=== PATIENT | male | born 1970 | race Caucasian/White ===

== ENCOUNTER 2019-11-07 16:07 | Emergency (ER) | payer MEDICAID, OTHER ==
[~2019-11-07] VITALS: Ht 190.5 cm; Wt 90.9 kg
[~2019-11-07 16:07] MED LIST: CITA20TA2 PO; CLIN150C2 PO
--- NOTE | 2019-11-07 17:00 | NUR ---
CHECKED ON PT. AND PT. WAS GONE, CHARGE NURSE AND PROVIDER AWARE AND WHEN WE RETURNED AT 1720 PT. HAD RETURNED TO THE TENT. EDUCATED PT. THAT HE CANNOT LEAVE THE TENT UNTIL WE GET RESULTS. PT. VERBALIZERD UNDERSTANDING.
[2019-11-07 17:25] VITALS: BP 144/85
[2019-11-07] MEDS ORDERED: TAM75C PO (17:30)
--- NOTE | 2019-11-07 18:15 | NUR ---
Swab will be sent to [facility] for results per micro in the lab.
== END 2019-11-07 17:43 | disposition home or self-care (01) ==
LOC: ER 16:09
DX: J06.9 Acute upper respiratory infection, unspecified (principal); Z20.828 Contact with and (suspected) exposure to other viral communicable diseases; B34.9 Viral infection, unspecified; K21.9 Gastro-esophageal reflux disease without esophagitis; F12.90 Cannabis use, unspecified, uncomplicated; F15.90 Other stimulant use, unspecified, uncomplicated; F11.90 Opioid use, unspecified, uncomplicated; Z87.891 Personal history of nicotine dependence; Z59.0 Homelessness; Z56.0 Unemployment, unspecified; Z79.2 Long term (current) use of antibiotics; Z79.899 Other long term (current) drug therapy
CPT/HCPCS: 36415; 87502; 87503; 87635; 99283

== ENCOUNTER 2023-05-29 00:57 | Emergency (ER) | payer MEDICAID ==
[~2023-05-29] VITALS: Ht 190.5 cm; Wt 70.8 kg
[2023-05-29] MEDS ORDERED: proparacaine 0.5% ophthalmic drops 15ml RIGHTEYE STA (03:44)
[2023-05-29] MEDS ORDERED: ciprofloxacin 0.3% 2.5ml ophthalmic solution RIGHTEYE ONE (05:05)
[2023-05-29] MEDS ORDERED: CIPR2.5D21 RIGHTEYE (05:17)
[2023-05-29 06:19] VITALS: BP 124/78; PULSE 63; RESP 14; TEMP 97.8; O2SAT 98
== END 2023-05-29 05:34 | disposition home or self-care (01) ==
LOC: ER 00:58
DX: T15.01XA Foreign body in cornea, right eye, initial encounter (principal); X58.XXXA Exposure to other specified factors, initial encounter; Y93.89 Activity, other specified; Y92.89 Other specified places as the place of occurrence of the external cause; Y99.8 Other external cause status
CPT/HCPCS: 65220; 99284

== ENCOUNTER 2024-07-28 02:50 | Emergency (ER) | payer MEDICAID ==
[~2024-07-28] VITALS: Ht 185.4 cm; Wt 90.9 kg
[2024-07-28 02:51] VITALS: BP 141/88; PULSE 92; RESP 15; O2SAT 98
[2024-07-28] MEDS ORDERED: CEPH-585 PO (03:55)
[2024-07-28 04:01] VITALS: TEMP 98.7
[2024-07-28] MEDS: cephalexin 250mg capsule PO ONE (04:06)
== END 2024-07-28 04:09 | disposition home or self-care (01) ==
LOC: ER 02:50
DX: L03.113 Cellulitis of right upper limb (principal); F12.90 Cannabis use, unspecified, uncomplicated; F15.90 Other stimulant use, unspecified, uncomplicated; Z90.89 Acquired absence of other organs; Z79.899 Other long term (current) drug therapy
CPT/HCPCS: 99283

== ENCOUNTER 2024-11-13 20:58 | Emergency (ER) | payer MEDICAID ==
[~2024-11-13] VITALS: Ht 190.5 cm; Wt 90.9 kg
[2024-11-13 21:05] VITALS: BP 162/90; TEMP 98.3
[2024-11-13] MEDS: cephalexin 250mg capsule PO STA (22:03)
[2024-11-13] MEDS ORDERED: SULF1TAB49 PO (23:43)
[2024-11-13 23:55] VITALS: PULSE 89; RESP 18; O2SAT 98
== END 2024-11-13 23:56 | disposition home or self-care (01) ==
LOC: ER 20:58
DX: L03.115 Cellulitis of right lower limb (principal); F12.90 Cannabis use, unspecified, uncomplicated; F15.90 Other stimulant use, unspecified, uncomplicated; Z90.89 Acquired absence of other organs; F11.90 Opioid use, unspecified, uncomplicated
CPT/HCPCS: 93971; 99284

== ENCOUNTER 2025-03-06 15:16 | Outpatient (CLI) | payer MEDICAID ==
--- NOTE | 2025-03-06 16:00 | RADIOLOGY REPORT ---
[facility] INDICATION: CHRONIC NECK PAIN COMPARISON: None TECHNIQUE: 4 views of the cervical spine were obtained. FINDINGS: The cervical vertebral alignment is normal. The predental space is normal. Multilevel degenerative changes most severe at C3-C4 through C5-C6 with moderate to severe neural for aminal and spinal canal stenosis. No acute fracture, vertebral compression deformity or aggressive osseous lesions. The imaged lung apices are unremarkable. IMPRESSION: No acute fracture.
== END 2025-03-06 23:59 | disposition home or self-care (01) ==
LOC: RAD 15:16
PROVIDERS: ATTEND Student in an Organized Health Care Education/Training Program
DX: M47.812 Spondylosis without myelopathy or radiculopathy, cervical region (principal); M54.2 Cervicalgia; M48.02 Spinal stenosis, cervical region
CPT/HCPCS: 72040

== ENCOUNTER 2025-03-19 18:13 | Emergency (ER) | payer MEDICAID ==
[~2025-03-19] VITALS: Ht 190.5 cm; Wt 65.5 kg
[2025-03-19 18:37] VITALS: BP 139/86; PULSE 89; RESP 15; TEMP 96.8; O2SAT 98
== END 2025-03-19 21:31 | disposition left against medical advice (07) ==
LOC: ER 18:14
DX: J02.9 Acute pharyngitis, unspecified (principal); Z53.21 Procedure and treatment not carried out due to patient leaving prior to being seen by health care provider